=== PATIENT | male | born 1960 | race Caucasian/White ===

== ENCOUNTER 2018-10-22 11:05 | Inpatient (IN) ==
--- NOTE | 2018-10-10 15:51 | PAT Medication Instructions ---
Medication Instructions Date of Service October 10, 2018 Home Medications amlodipine 2.5 mg PO QPM aspirin [Aspirin Low Dose] 81 mg PO QPM doxazosin 8 mg PO QPM gemfibrozil 600 mg PO BIDM multivitamin 1 tab PO QPM omeprazole 20 mg PO DAILY PRN oxycodone-acetaminophen 1 tab PO QID psyllium husk [Daily Fiber] 0.52 g PO QAM ASK your prescriber and surgeon aspirin [Aspirin Low Dose] 81 mg PO QPM STOP taking 48 hours before surgery gemfibrozil 600 mg PO BIDM DO NOT take the morning of surgery psyllium husk [Daily Fiber] 0.52 g PO QAM Take morning of surgery With a small sip of water, OTHERWISE NOTHING TO EAT OR DRINK AFTER MIDNIGHT: omeprazole 20 mg PO DAILY PRN oxycodone-acetaminophen 1 tab PO QID (okay to take up to 4 hours prior to surgery if needed) Take evening before surgery amlodipine 2.5 mg PO QPM doxazosin 8 mg PO QPM multivitamin 1 tab PO QPM oxycodone-acetaminophen 1 tab PO QID Other Notes If you have any questions please call us at [phone] or [phone] or [phone] or [phone]
--- NOTE | 2018-10-14 14:22 | Anesthesiology Consultation ---
Date of Service October 14, 2018 Assessment & Plan (1) Encounter for pre-operative examination: Chart Review Chart Review: Acceptable Risk for Surgery and Patient seen in Pre Admission Testing Teaching & Discussion Pre-Anesthesia Teaching/Discussion Notes: Instructed NPO after midnight before surgery,except medications with 15 cc of water. Medication instructions provided according to the PAT guidelines. History Surgery Operation Date: 10/22/18 14:25 Proposed Procedures p L2-L3 Transforaminal Lumbar Interbody Fusion, Spinal Cord Monitoring - Jean Massey DO Height/Weight Height: 5 ft 11 in Weight: 110.8 kg Allergies Allergy/AdvReac Type Severity Reaction Status Date / Time No Known Allergies Allergy Verified 10/08/18 11:38 Medications Home Medications Medication Instructions Recorded Confirmed Last Taken amlodipine 2.5 mg PO QPM 10/08/18 10/08/18 Unknown aspirin [Aspirin Low Dose] 81 mg PO QPM 10/08/18 10/08/18 Unknown doxazosin 8 mg PO QPM 10/08/18 10/08/18 Unknown gemfibrozil 600 mg PO BIDM 10/08/18 10/08/18 Unknown multivitamin 1 tab PO QPM 10/08/18 10/08/18 Unknown omeprazole 20 mg PO DAILY PRN 10/08/18 10/08/18 Unknown oxycodone-acetaminophen 1 tab PO QID 10/08/18 10/08/18 Unknown psyllium husk [Daily Fiber] 0.52 g PO QAM 10/08/18 10/08/18 Unknown Past Medical History Medical History GERD (gastroesophageal reflux disease) controlled History of kidney stones Hyperlipidemia Hypertension Obesity Exercise / Class Metabolic Activity II 4-5 Yardwork/Stairs/Walk up hill Past Surgical History Surgical History History of surgery JAW R/T ACCIDENT History of surgery on extremity LEFT LEG R/T ACCIDENT Hx of cholecystectomy Hx of colonoscopy Past Anesthesia History No Hx of Anesthesia Complications and No Family Hx of Anesthesia Complications History of PONV No Hx of PONV and No Hx of Motion Sickness Social History Smoking Status: Former smoker Do You Dip or Chew Tobacco: No Smoking End Date: Quit 31 years ago (occasional cigars previously) Hx Alcohol Use: Yes Alcohol type: beer, wine and hard liquor alcohol intake frequency: a few times a month Hx Substance Use: No Review of Systems LBP with RLE buttocks/LE neuropathy. Patient denies chest pain, shortness of breath, dyspnea on exertion, cough, wheezing, palpitations. Physical Exam Vital Signs VITALS BP 128/83 P 71 TEMP 98.0 SP02 95%RA RESP 16 PHYSICAL Mildly decreased cervical extension Full TMJ range of motion. TMD 3 finger breaths Mallampati Score 2 Dentition: intact, crowns on molars Lungs: clear throughout to auscultation Cardiac: regular rate and rhythm, no murmurs noted Spine: normal Carotid arteries: negative bruit Extremities: no edema Trimmed dove Testing Laboratory Results 10/14/18 15:00 10/14/18 15:00 PT 10.3 Seconds (9.0-12.0) 10/14/18 15:00 INR 1.0 (0.9-1.1) 10/14/18 15:00 APTT 27.0 Seconds (21.0-31.0) 10/14/18 15:00 Urine Color Yellow 10/14/18 15:00 Urine Appearance Clear (Clear) 10/14/18 15:00 Urine pH 6.0 (4.5-7.5) 10/14/18 15:00 Ur Specific [place]on 1.024 (1.000-1.030) 10/14/18 15:00 Urine Protein Negative (Negative) 10/14/18 15:00 Urine Glucose (UA) Negative (Negative) 10/14/18 15:00 Urine Ketones Negative (Negative) 10/14/18 15:00 Urine Nitrite Negative (Negative) 10/14/18 15:00 Ur Leukocyte Esterase Negative (Negative) 10/14/18 15:00 Blood Type A Positive 10/14/18 15:00 Antibody Screen NEGATIVE 10/14/18 15:00 Electrocardiogram Date: 10/14/18 NSR at 66bpm. NS STA. Chest X-Ray Date: 10/14/18 No acute process within the chest. Partially calcified 12 mm nodule within the right lung base. This favors a calcified granuloma. However, follow-up chest CT is recommended for confirmation (report sent to PCP/surgeon for their reference). PCP/surgeon are aware of CXR findings and will be obtaining chest CT to further evaluate but will not be done until after surgery- reviewed by Dr. Haas who feels okay to proceed without CT prior to surgery*
--- NOTE | 2018-10-14 15:33 | XRay Report ---
XR chest Pre-admission PA/Lat HISTORY: Preop. COMPARISON: None. FINDINGS: No pneumothorax. No pleural effusions. No focal lung consolidations to suggest pneumonia. N o evidence for pulmonary edema. The heart is normal in size. Partially calcified 12 mm nodule right l heaven base. IMPRESSION: 1. No acute process within the chest. 2. Partially calcified 12 mm nodule within the right lung base. This favors a calcified granuloma. Ho wever, follow-up chest CT is recommended for confirmation. 3. These findings were called/faxed to the referring physician's office following dictation. Electronically signed by: Krystian Pompa M.D. 10/14/2018 3:32 PM
[2018-10-14 16:38] LABS: Basophils # (auto) 0.02 K/uL (0-0.2); Basophils % (auto) 0.3 %; Eosinophils # (auto) 0.08 K/uL (0-0.5); Eosinophils % (auto) 1.2 %; Hematocrit (blood only) 39.1 % (42-52); Hemoglobin 13.5 g/dL (14.0-18.0); Immature Granulocytes # (auto) 0.01 K/uL (0.00-0.02); Immature Granulocytes % (auto) 0.1 %; Lymphocytes # (auto) 1.77 K/uL (1.2-3.4); Mean Corpuscular Hgb Conc 34.5 g/dL (32-36); Mean Corpuscular Volume 85.4 fL (80-100); Mean Platelet Volume 10.5 fL (7.4-10.4); Monocytes # (auto) 0.52 K/uL (0.11-0.59); Monocytes % (auto) 7.6 %; Neutrophils % (auto) 64.8 %; Platelet Count 276 K/uL (130-400); RDW Coefficient of Variation 13.6 % (11.5-14.5); RDW Standard Deviation 42.3 fL (36.4-46.3); Red Blood Count 4.58 M/uL (4.7-6.1)
[2018-10-14 16:40] LABS: Appearance Urine Clear (Clear); Bilirubin Urine Negative (Negative); Blood Urine Negative (Negative); Color Urine Yellow; Glucose Urine UA Negative (Negative); Ketones Urine Negative (Negative); Leukocyte Esterase Urine Negative (Negative); Nitrite Urine Negative (Negative); Protein Urine Negative (Negative); Specific Gravity Urine 1.024 (1.000-1.030); Urobilinogen Urine Negative (Negative)
[2018-10-14 16:46] LABS: BUN Creatinine Ratio 22.1 (10-20); Calcium 8.6 mg/dl (8.5-10.1); Creatinine Clr Calc Pharmacy 105.5 ml/min; Est GFR (African American) 98.3; Est GFR (Non-African American) 84.8; Potassium 4.2 mmol/L (3.5-5.1)
[2018-10-14 16:49] LABS: Prothrombin Time 10.3 Seconds (9.0-12.0)
[~2018-10-22 11:05] MED LIST: ACETAMINOPHEN 500 MG TAB PO SCH; CEFAZOLIN 2000MG 2,000 MG/15 ML SYR IV SCH; CeleBREX 200 MG CAP PO SCH; GABAPENTIN 600 MG DOSE PO SCH; LR 15ML/HR IV SCH
[2018-10-22] MEDS ORDERED: MIDAZOLAM HCL 1 MG/ML 2ML VIAL ONE (12:57)
[2018-10-22] MEDS ORDERED: fentaNYL citrate 100 MCG/2 ML VIAL ONE ×3 (12:57→14:06)
--- NOTE | 2018-10-22 13:08 | History & Physical Bridge Note ---
Date of Service October 22, 2018 History & Physical Bridge Note I have examined the patient, reviewed the History & Physical and in the interval since the performance of the History & Physical I have noted the following changes of clinical significance: no changes noted
--- NOTE | 2018-10-22 13:09 | History & Physical Report ---
Date of Service October 22, 2018 Assessment & Plan (1) Lumbar disc herniation with radiculopathy: Transforaminal lumbar interbody fusion L2-3 Present on Admission?: Yes History of Present Illness Chief Complaint: Back and leg pain Primary Care Provider: Brady Stoner With chronic persistent back and leg pain. After failing extensive course of nonoperative care is here for surgical intervention. Allergies Allergy/AdvReac Type Severity Reaction Status Date / Time bee venom protein (honey bee) Allergy Severe Swelling Verified 10/22/18 11:37 of Lip/Tongue/Throat shrimp Allergy Severe Swelling Verified 10/22/18 11:37 of Lip/Tongue/Throat bay leaves Allergy Severe Swelling Uncoded 10/22/18 11:37 of Lip/Tongue/Throat Home Medications Home Medications Medication Instructions Recorded Confirmed Type amlodipine 2.5 mg PO QPM 10/08/18 10/22/18 History aspirin [Aspirin Low Dose] 81 mg PO QPM 10/08/18 10/22/18 History doxazosin 8 mg PO QPM 10/08/18 10/22/18 History gemfibrozil 600 mg PO BIDM 10/08/18 10/22/18 History multivitamin 1 tab PO QPM 10/08/18 10/22/18 History omeprazole 20 mg PO DAILY PRN 10/08/18 10/22/18 History oxycodone-acetaminophen 1 tab PO QID PRN 10/08/18 10/22/18 History psyllium husk [Daily Fiber] 0.52 g PO QAM 10/08/18 10/22/18 History Past Med/Surg History Medical History GERD (gastroesophageal reflux disease) controlled History of kidney stones Hyperlipidemia Hypertension Obesity Surgical History History of surgery JAW R/T ACCIDENT History of surgery on extremity LEFT LEG R/T ACCIDENT Hx of cholecystectomy Hx of colonoscopy Social History Preferred Language: Welsh Communication Ability: Effective Beliefs That Will Affect Care: None Current Living Situation: Spouse Feels Safe at Home: Yes Smoking Status: Former smoker Tobacco Type: smokeless tobacco ; Do You Dip or Chew Tobacco: No ; Smoking End Date: Quit 31 years ago (occasional cigars previously) ; Second Hand Exposure: Yes (OCCASSIONALLY) ; Hx Alcohol Use: Yes Alcohol type: beer, wine and hard liquor Hx Substance Use: No Physical Exam Physical Exam: Patient is alert and oriented neurologically intact. Results & Data Vital Signs (Past 12 Hours) Vital Signs Temp Pulse Resp BP Pulse Ox 10/22/18 11:33 36.8 C 80 18 144/85 H 96
[2018-10-22] MEDS ORDERED: ATROPINE SULFATE 0.1 MG/ML 10ML SYR IV PRN (13:16)
[2018-10-22] MEDS ORDERED: HYDROmorphone INJ 2 MG/ML SYR/VIAL IV PRN (13:16)
[2018-10-22] MEDS ORDERED: ONDANSETRON INJ 2 MG/ML 2 ML VIAL IV PRN ×2 (13:16→17:02)
[2018-10-22] MEDS ORDERED: ePHEDrine sulfate 50 MG/ML AMP IV PRN (13:16)
[2018-10-22] MEDS ORDERED: HYDROmorphone INJ 2 MG/ML SYR/VIAL ONE (13:18)
[2018-10-22] MEDS ORDERED: BUPIVACAINE/EPINEPHRINE 0.5% MPF 1:200,000 30 ML VIAL ONE (13:20)
[2018-10-22] MEDS ORDERED: BACITRACIN INJ 50,000 UNIT VIAL ONE (13:20)
[2018-10-22] MEDS ORDERED: NEOSTIGMINE METHYLSULFATE 1 MG/ML 10ML VIAL ONE (14:11)
[2018-10-22] MEDS ORDERED: ROCURONIUM BROMIDE 10 MG/ML 5 ML VIAL ONE (14:11)
[2018-10-22] MEDS ORDERED: DEXAMETHASONE SOD INJ 4 MG/ML VIAL ONE (14:11)
[2018-10-22] MEDS ORDERED: LIDOCAINE HCL 2% 2 ML VIAL/AMP(20MG/ML) INFIL ONE (14:11)
[2018-10-22] MEDS ORDERED: GLYCOPYRROLATE 0.2 MG/ML VIAL ONE (14:11)
[2018-10-22] MEDS ORDERED: ONDANSETRON INJ 2 MG/ML 2 ML VIAL ONE ×2 (14:11→14:50)
[2018-10-22] MEDS ORDERED: PROPOFOL IV EMULSION 10 MG/ML 20 ML VIAL IV ONE (14:11)
[2018-10-22] MEDS ORDERED: ePHEDrine sulfate 50 MG/ML SYR ONE (14:12)
[2018-10-22] MEDS ORDERED: FLOSEAL HEMOSTATIC MATRIX 10ML TOP ONE (14:23)
--- NOTE | 2018-10-22 15:19 | Operative Report ---
Post Operative Report Pre & Post Diagnosis Operation Date: 10/22/18 14:25 Pre-Op Diagnosis: Lumbar disc herniation with radiculopathy Post-Op Diagnosis: Lumbar disc herniation with radiculopathy Procedure Operation Date: 10/22/18 14:25 Actual Procedures #1 lumbar decompression with medial facetectomy foraminotomies L2-3. #2 posterior spinal fusion L2-3. #3 placement posterior instrumentation L2-3. #4 interbody fusion L2-3. #5 placement of peek cage 13 x 26 mm L2-3. #6 placement of local autograft in the posterior lateral gutters. #7 placement infuse collagen sponge, master graft in the posterior lateral gutters. Ostial amp and interbody space. Surgeon Jean Massey, Physician Relations Specialist Diana Simpson Estimated Blood Loss 200 Findings See Below The patient is 5 foot 11 inches tall weighing over 110 kg with a BMI in excess of 33. The patient's significant body habitus did create marked technical difficulty adding at least 35% increase in operative time. Specimens None Indications This is a 58-year-old male that presents with the above-mentioned diagnosis after failing extensive course of nonoperative care like to undergo the above- mentioned procedure. Description of Procedure Patient was met with identified and informed consent obtained. Patient was then taken to the operative suite underwent ablation placed in a prone position Rk table on top of the Jarret frame. All bony prominences well-padded eyes inspected to ensure no external pressure placed upon the peer at this point the lumbar spine was prepped and draped in the normal sterile fashion. Sharp dissection with the assistance of Bovie cautery was performed down to and exposing the lamina and transverse processes of L2 and L3. From a caudal cephalad fashion complete laminectomy of L2 was performed including medial facetectomy foraminotomy on the right. Identified several loose fragments of disc material out into the foramen. They were removed in their entirety. Pedicle screw was then placed in L2-L3 bilaterally with assistance of fluoroscopy the process sudheer placed. Through a transforaminal approach on the right complete discectomy was performed endplates curetted to subcortical bleeding bone and a 13 x 26 mm peek cage filled with ostium bone graft tapped in position. The rods were then compressed locked into final position bilaterally. The transverse processes of L2 and L3 burred to subcortical bleeding bone. Infuse collagen sponge mass graft and local autograft placed in the posterior lateral gutters. 15 round FRANCIA drain inserted. The incision was then closed with 1 Vicryl fascia 2-0 Vicryl subcutaneously and 4 Monocryl for final skin closure. Steri-Strips dressings placed. Patient will continue PACU in stable condition. Please note Diana Simpson present at the entire procedure involved the patient positioning complex portions of the surgery and final skin closure. Lastly spinal cord monitoring was utilized that procedure no changes noted. I attest to the content of the Intraoperative Record and any orders documented therein. Any exceptions are noted below.
--- NOTE | 2018-10-22 15:25 | Fluoroscopy Report ---
FL lumbar spine 2-3V CLINICAL HISTORY: L2-L3 LUMBAR INTERBODY FUSION COMPARISON STUDY: None FLUOROSCOPY TIME: Imaging seconds. NUMBER OF FLUOROSCOPIC IMAGES: 2 FINDINGS: 2 intraoperative fluoroscopic spot images reveal postsurgical changes of an L2-3 discectomy and interbody fusion with posterior pedicle screw fixation. IMPRESSION: Postsurgical changes of an L2-3 discectomy and fusion. Electronically signed by: Ankit Mitchell M.D. 10/22/2018 3:24 PM
[2018-10-22] MEDS: fentaNYL citrate 100 MCG/2 ML VIAL IV PRN ×2 (15:59→16:04)
--- NOTE | 2018-10-22 16:09 | Anesthesiology Progress Note ---
Date of Service October 22, 2018 Anesthesia Post Procedure Vital Signs Vital Signs: Temp Pulse Pulse Resp BP Pulse Ox 10/22/18 15:39 36.0 C L 99 H 16 139/81 97 10/22/18 11:33 36.8 C 80 18 144/85 H 96 Pain Intensity Back: Pain Intensity: 3 Transfer of Care Handoff Completed per policy Notes Mental Status: alert / awake / arousable and participated in evaluation Patient Amnestic to Procedure: Yes Nausea / Vomiting: adequately controlled Pain: adequately controlled Airway Patency, RR, SpO2: stable & adequate BP & HR: stable & adequate Hydration State: stable & adequate Anesthetic Complications: no major complications apparent and Pt Satisfied with anesthetic care
[2018-10-22] MEDS ORDERED: DO NOT ADMINISTER FLU VACCINE PRN (17:02)
[2018-10-22] MEDS ORDERED: ALUMINUM/MAGNESIUM SUSP 30 ML UDC PO PRN (17:02)
[2018-10-22] MEDS ORDERED: PROMETHAZINE HCL 12.5 MG in SODIUM CHLORIDE 0.9% 50 ML IV PRN (17:02)
[2018-10-22] MEDS ORDERED: BISACODYL 10 MG SUPP PR PRN (17:02)
[2018-10-22] MEDS ORDERED: ACETAMINOPHEN 1,000 MG/100 ML VIAL IV PRN (17:02)
[2018-10-22] MEDS ORDERED: SOD PHOSPHATE/SOD BIPHOSPHATE ENEMA 132 ML BTL PR PRN (17:02)
[2018-10-22] MEDS ORDERED: ONDANSETRON 4 MG TAB PO PRN (17:02)
[2018-10-22] MEDS ORDERED: LORazepam 0.5 MG TAB PO PRN (17:02)
[2018-10-22] MEDS ORDERED: LORazepam 0.5 MG/1 ML VIAL IV PRN (17:02)
[2018-10-22] MEDS ORDERED: DO NOT ADMINISTER PNEUMOCOCCAL VACCINE PRN (17:02)
[2018-10-22] MEDS ORDERED: METOCLOPRAMIDE HCL INJ 5 MG/ML 2 ML VIAL IV PRN (17:02)
[2018-10-22] MEDS ORDERED: MAGNESIUM HYDROXIDE SUSP 30 ML UDC PO PRN (17:02)
[2018-10-22] MEDS ORDERED: FAMOTIDINE 20 MG TAB PO PRN (17:02)
[2018-10-22] MEDS ORDERED: NALOXONE HCL 0.4 MG/1 ML VIAL/CARP IV PRN (17:02)
[2018-10-22] MEDS ORDERED: ACETAMINOPHEN 500 MG TAB PO PRN (17:02)
[2018-10-22] MEDS: KETOROLAC 30 MG/ML VIAL IV SCH ×2 (18:36→23:47)
[2018-10-22] MEDS: OXYCODONE HCL IR 5 MG TAB (IMMEDIATE RELEASE) PO PRN (18:46)
[2018-10-22] MEDS: ASPIRIN 81 MG ECTAB PO SCH (20:56)
[2018-10-22] MEDS: DOXAZosin MESYLATE 4 MG TAB PO SCH (20:56)
[2018-10-22] MEDS: AMLODIPINE BESYLATE 5 MG TAB PO SCH (20:56)
[2018-10-22] MEDS: MULTIVITAMIN TAB PO SCH (20:56)
[2018-10-22] MEDS: HYDROmorphone INJ 0.5 MG/0.5 ML SYR IV PRN (20:57)
[2018-10-22] MEDS: DOCUSATE SODIUM/SENNA 50/8.6MG TAB PO SCH (20:57)
[2018-10-22] MEDS: CEFAZOLIN 2000MG 2,000 MG/15 ML SYR IV SCH (21:04)
[2018-10-22] MEDS: LACTATED RINGER'S 1,000 ML IV SCH (21:15)
[2018-10-23] MEDS ORDERED: COUGH DROP (SUGAR FREE) LOZ 24 LOZ/1 BOX BUCCAL PRN (04:05)
[2018-10-23] MEDS ORDERED: COUGH DROP (SUGAR FREE) LOZ 24 LOZ/1 BOX BUCCAL ONE (04:37)
[2018-10-23] MEDS ORDERED: POLYETHYLENE (MIRALAX) 17 GM PACK PO SCH (06:00)
[2018-10-23] MEDS: KETOROLAC 30 MG/ML VIAL IV SCH ×2 (06:02→11:36)
[2018-10-23] MEDS: GEMFIBROZIL 600 MG TAB PO SCH ×2 (06:04→11:36)
[2018-10-23] MEDS: CEFAZOLIN 2000MG 2,000 MG/15 ML SYR IV SCH (06:04)
[2018-10-23 06:11] LABS: Basophils # (auto) 0.01 K/uL (0-0.2); Basophils % (auto) 0.1 %; Hematocrit (blood only) 35.8 % (42-52); Immature Granulocytes # (auto) 0.03 K/uL (0.00-0.02); Immature Granulocytes % (auto) 0.2 %; Lymphocytes # (auto) 1.44 K/uL (1.2-3.4); Lymphocytes % (auto) 10.4 %; Mean Corpuscular Hgb Conc 33.5 g/dL (32-36); Mean Corpuscular Volume 84.4 fL (80-100); Mean Platelet Volume 10.3 fL (7.4-10.4); Monocytes # (auto) 0.81 K/uL (0.11-0.59); Monocytes % (auto) 5.9 %; Neutrophils # (auto) 11.49 K/uL (1.4-6.5); Neutrophils % (auto) 83.4 %; Platelet Count 215 K/uL (130-400); RDW Coefficient of Variation 13.5 % (11.5-14.5); RDW Standard Deviation 40.8 fL (36.4-46.3); Red Blood Count 4.24 M/uL (4.7-6.1); White Blood Count 13.78 K/uL (4.8-10.8)
[2018-10-23] MEDS: LACTATED RINGER'S 1,000 ML IV SCH (06:37)
[2018-10-23 06:43] LABS: Calcium 8.8 mg/dl (8.5-10.1); Creatinine Clr Calc Pharmacy 103.2 ml/min; Est GFR (African American) 95.9; Est GFR (Non-African American) 82.8
--- NOTE | 2018-10-23 08:19 | Anesthesiology Progress Note ---
Date of Service October 23, 2018 Anesthesia Post Procedure Vital Signs Vital Signs: Temp Pulse Pulse Pulse Pulse Resp BP 10/23/18 08:08 36.4 C L 95 H 16 10/23/18 03:21 36.6 C 94 H 16 10/22/18 23:35 36.6 C 108 H 16 10/22/18 20:11 36.7 C 110 H 18 10/22/18 18:50 104 H 18 10/22/18 17:54 36.5 C 101 H 18 10/22/18 17:23 36.4 C L 93 H 18 10/22/18 16:50 36.6 C 30 L 16 10/22/18 16:36 83 14 10/22/18 16:35 95 H 15 133/86 10/22/18 16:31 87 14 10/22/18 16:30 86 13 132/81 10/22/18 16:26 85 14 10/22/18 16:25 98 H 22 132/88 10/22/18 16:22 36.2 C L 10/22/18 16:21 90 14 10/22/18 16:20 93 H 12 140/83 10/22/18 16:16 92 H 14 10/22/18 16:15 98 H 13 150/85 H 10/22/18 16:11 94 H 12 10/22/18 16:10 91 H 12 134/82 10/22/18 16:06 90 11 L 10/22/18 16:05 91 H 10 L 139/79 10/22/18 16:01 94 H 15 10/22/18 16:00 93 H 14 122/86 10/22/18 15:56 92 H 12 10/22/18 15:55 92 H 13 136/76 10/22/18 15:51 97 H 13 10/22/18 15:50 98 H 16 116/70 10/22/18 15:46 86 14 10/22/18 15:45 86 15 135/81 10/22/18 15:41 95 H 15 10/22/18 15:40 88 15 118/86 10/22/18 15:39 36.0 C L 92 H 99 H 15 139/81 10/22/18 11:33 36.8 C 80 18 BP BP Pulse Ox 10/23/18 08:08 123/79 93 10/23/18 03:21 127/73 95 10/22/18 23:35 107/70 95 10/22/18 20:11 143/86 H 91 10/22/18 18:50 142/90 H 95 10/22/18 17:54 141/93 H 90 10/22/18 17:23 134/87 94 10/22/18 16:50 147/85 H 94 10/22/18 16:36 92 10/22/18 16:35 94 10/22/18 16:31 94 10/22/18 16:30 94 10/22/18 16:26 92 10/22/18 16:25 93 10/22/18 16:22 96 10/22/18 16:21 96 10/22/18 16:20 97 10/22/18 16:16 96 10/22/18 16:15 93 10/22/18 16:11 92 10/22/18 16:10 93 10/22/18 16:06 94 10/22/18 16:05 95 10/22/18 16:01 95 10/22/18 16:00 95 10/22/18 15:56 95 10/22/18 15:55 95 10/22/18 15:51 97 10/22/18 15:50 97 10/22/18 15:46 98 10/22/18 15:45 97 10/22/18 15:41 93 10/22/18 15:40 94 10/22/18 15:39 139/81 93 10/22/18 11:33 144/85 H 96 Pain Intensity Back: Pain Intensity: 3 Notes Mental Status: alert / awake / arousable and participated in evaluation Nausea / Vomiting: adequately controlled Pain: adequately controlled Airway Patency, RR, SpO2: stable & adequate BP & HR: stable & adequate Hydration State: stable & adequate
[2018-10-23] MEDS ORDERED: PANTOprazole 40 MG TAB PO PRN (09:00)
--- NOTE | 2018-10-23 10:35 | Orthopedic Progress Note ---
Date of Service October 23, 2018 Assessment & Plan (1) Lumbar disc herniation with radiculopathy: Patient will continue physical therapy today monitor his FRANCIA output anticipate discharge home the next few days. Present on Admission?: Yes Subjective Patient's back pain is controlled leg symptoms markedly improved. Still some notes of numbness to the right thigh. Physical Exam Physical Exam: Patient is in the chair at the bedside. Is good strength testing. Appears comfortable. Results & Data Vital Signs (Past 12 Hours) Vital Signs Temp Pulse Pulse Resp BP BP Pulse Ox 10/23/18 08:08 36.4 C L 95 H 16 123/79 93 10/23/18 03:21 36.6 C 94 H 16 127/73 95 10/22/18 23:35 36.6 C 108 H 16 107/70 95
[2018-10-23] MEDS: OXYCODONE HCL IR 5 MG TAB (IMMEDIATE RELEASE) PO PRN ×3 (12:33→20:55)
[2018-10-23] MEDS: AMLODIPINE BESYLATE 5 MG TAB PO SCH (20:50)
[2018-10-23] MEDS: MULTIVITAMIN TAB PO SCH (20:51)
[2018-10-23] MEDS: DOXAZosin MESYLATE 4 MG TAB PO SCH (20:51)
[2018-10-23] MEDS: ASPIRIN 81 MG ECTAB PO SCH (20:52)
[2018-10-23] MEDS: DOCUSATE SODIUM/SENNA 50/8.6MG TAB PO SCH (20:55)
[2018-10-23] MEDS: HYDROmorphone INJ 0.5 MG/0.5 ML SYR IV PRN (22:32)
[2018-10-24] MEDS: OXYCODONE HCL IR 5 MG TAB (IMMEDIATE RELEASE) PO PRN ×5 (04:53→23:54)
[2018-10-24] MEDS: GEMFIBROZIL 600 MG TAB PO SCH ×2 (04:54→11:02)
[2018-10-24] MEDS ORDERED: HYDROmorphone INJ 1 MG/ML SYRINGE IV ONE (07:30)
[2018-10-24] MEDS: HYDROmorphone INJ 0.5 MG/0.5 ML SYR IV PRN (14:07)
--- NOTE | 2018-10-24 15:27 | Orthopedic Progress Note ---
Date of Service October 24, 2018 Assessment & Plan (1) Lumbar disc herniation with radiculopathy: This time we will continue physical therapy monitor his FRANCIA output anticipate discharge home tomorrow. Present on Admission?: Yes Subjective Patient struggling with a bit more back pain today. Leg symptoms are still markedly improved. He is been ambulating well. Physical Exam Physical Exam: Patient is in the chair at the bedside. Is good strength testing. Results & Data Vital Signs (Past 12 Hours) Vital Signs Temp Pulse Pulse Resp BP BP Pulse Ox 10/24/18 15:21 37.5 C 99 H 16 135/79 10/24/18 07:48 36.8 C 83 18 114/73 90 10/24/18 06:59 36.8 C 18 L 88 18 112/68 93 10/24/18 06:42 37.0 C 84 16 137/78 94
[2018-10-24] MEDS: TRAMADOL HCL 50 MG TABLET PO PRN ×2 (17:09→21:23)
[2018-10-24] MEDS: DOXAZosin MESYLATE 4 MG TAB PO SCH (21:17)
[2018-10-24] MEDS: ASPIRIN 81 MG ECTAB PO SCH (21:17)
[2018-10-24] MEDS: MULTIVITAMIN TAB PO SCH (21:18)
[2018-10-24] MEDS: AMLODIPINE BESYLATE 5 MG TAB PO SCH (21:18)
[2018-10-24] MEDS: DOCUSATE SODIUM/SENNA 50/8.6MG TAB PO SCH (21:22)
[2018-10-25] MEDS: OXYCODONE HCL IR 5 MG TAB (IMMEDIATE RELEASE) PO PRN ×2 (03:56→08:46)
[2018-10-25] MEDS: GEMFIBROZIL 600 MG TAB PO SCH ×2 (06:15→11:49)
--- NOTE | 2018-10-25 08:15 | Discharge Summary ---
Date of Service October 25, 2018 Admission HPI Per Admitting Provider With chronic persistent back and leg pain. After failing extensive course of nonoperative care is here for surgical intervention. Principal Diagnosis Lumbar spinal stenosis with radiculopathy Discharge Data Allergies Allergy/AdvReac Type Severity Reaction Status Date / Time bee venom protein (honey bee) Allergy Severe Swelling Verified 10/22/18 11:37 of Lip/Tongue/Throat shrimp Allergy Severe Swelling Verified 10/22/18 11:37 of Lip/Tongue/Throat bay leaves Allergy Severe Swelling Uncoded 10/22/18 11:37 of Lip/Tongue/Throat Consultations 10/22/18 17:02 Consult Case Management - Discharge Planning Routine Procedures Performed Operation Date: 10/22/18 14:25 Actual Procedures p L2-L3 Transforaminal Lumbar Interbody Fusion, Spinal Cord Monitoring(Not Applicable) - Jean Massey DO Ordered Studies 10/22/18 14:25 FL fluoroscopy <1hr Routine FL lumbar spine 2-3V Routine Hospital Course (1) Lumbar disc herniation with radiculopathy: Patient underwent lumbar decompression fusion tolerated as well as taken to orthopedic for postoperative. Postop day 1 is up and ambulating leg symptoms markedly improved. Progressed to postop day #2 postop day #3 pain was well controlled FRANCIA drain decreased appropriately subsequently discharged home. Discharge orders and instructions found in the chart for further review. Total Time Total Time Spent Total Time Spent (In Minutes): 20 minutes Discharge Plan Discharge Items Patient Disposition: Home - Self-Care Reason For Visit: LUMBAR OTHER INTERVERTEBRAL DISC DISPLACEMENT Discharge Diagnosis: Lumbar disc herniation with radiculopathy Activity: Per Instructions section Non-emergency contact: Primary Care Provider Call non-emergency contact if: you have any medication questions Follow-up/Referrals: Brady Stoner M.D. [Primary Care Provider] - Diet: Regular Addtl Attending Provider Instructions: ACTIVITY RECOMMENDATIONS: SELF CARE INSTRUCTIONS AFTER THORACIC/LUMBAR FUSIONS 1. You may walk to your tolerance. It is good exercise for your legs and back. Expect some back and intermittent leg aches and pains. 2. You may perform "counter-top" level activities (make a sandwich, partha with a project, etc.). 3. No bending or lifting of more than 10 pounds or back twisting of any nature (roll like a log when turning in bed). 4. You may ride in a car for 20-30 minutes at a time. No driving until after your first visit with your doctor. 5. Frequent changes of position and restricting sitting to 30 minutes at a time will help limit the amount of back spasms and stiffness you may experience. 6. You may discontinue the use of ambulatory aids (cane, crutches, etc.) once your strength and confidence allow. 7. You may civil engineering draftsperson the shower and let water strike your incision when you arrive home at least once daily. Do not take a tub bath, sit in a hot tub or go into a swimming pool until after your first recheck in the office. SPECIAL CARE INSTRUCTIONS: VERY IMPORTANT TO READ AND REVIEW A. Your surgical incision has been closed with a cosmetic suture under the skin that will dissolve in about 6 weeks. In 14 days, you can use a pair of clean scissors and cut the suture that is left outside of the skin at the ends of your incision. 1. The small skin tapes can be removed 7 days after surgery if they have not fallen off by that point. 2. You may keep the wound open to air as much as possible to promote healing after post-op day number 5 unless told otherwise by your doctor. 3. If you think the wound looks like it is becoming infected (redness or worsening drainage) and/or you are experiencing fever, chill or worsening back pain and muscle spasms, contact the office so that we may evaluate you as soon as possible. B. Complications are uncommon, but please contact us if you have any signs or symptoms of: 1. wound infection (fever higher than 102.5 degrees F, redness, separation of wound, drainage, or increasing pain from the incision) 2. blood clots in legs (pain, swelling, redness and warmth in legs) 3. urinary tract infection (fever higher than 102.5 degrees F, burning upon urination or increased frequency of urination) 4. nerve problems (inability to walk on your toes or heels, numbness, loss of bowel or bladder control) 5. any other symptoms that concern you C. Please call the office at if you have any concerns or questions about your operation or recovery. D. No smoking! Smoking drastically decreases the chance of a solid fusion. E. Do not take any anti-inflammatory medications (Indocin, Advil, Motrin, Aspirin, Naprosyn, etc.) as these may inhibit the chance of a solid fusion. Tylenol is okay to take for pain. MANAGING PAIN AFTER SPINAL SURGERY 1. Narcotic medication is intended for short-term use and will be provided for surgical pain. Surgical pain usually lasts for a period of 4-6 weeks. Narcotic medication includes Percocet, Vicodin, Darvocet, Tylenol #3 or Lortab. 2. Longer-term pain is more appropriately treated with non-narcotic medication such as Tylenol ES. 3. Muscle spasm is not appropriately treated with narcotics. Muscle relaxers such as Soma, Flexeril or Skelaxin can be used along with Tylenol ES. 4. Remember that we all live with some "aches and pains". This is not unusual or uncommon after an injury or as we get older. a. Back pain is expected and may include muscle spasms for 4 to 6 weeks after surgery. The pain should gradually improve. If the pain worsens for no apparent reason, please contact the office. b. Intermittent leg pain may also be experienced and should not be concerned about unless it worsens for no apparent reason. If so, please contact the office. 5. We will provide appropriate medication within the normal guidelines of their prescribed use. We will also be very cautious and aware of potential abuse and extended duration of patients' medication needs. a. Pain medications are for your comfort and to assist with sleep and rest so that the tissue can heal. They are not provided in order to return to normal activity and should not be used through the day. To do so or worsening pain at night can result from ongoing tissue damage and development of tolerance to the prescribed medicine. 6. Please allow 2-3 days to process refills. Prescriptions will not be mailed but must be picked up at the office. FOLLOW UP VISIT: Keep your scheduled follow-up appointment. Any questions, please call the office at . Pending Studies at Discharge: No Stand-Alone Forms: [facility] and [place] Order Prescriptions: New tramadol 50 mg Tablet 50 mg PO Q4H PRN (Reason: Pain, Moderate) Qty: 30 RF: 0 oxycodone 5 mg Tablet 5 mg PO Q4H PRN (Reason: Pain, Severe) Qty: 30 RF: 0 Continued multivitamin Tablet 1 tab PO QPM RF: 0 amlodipine 2.5 mg Tablet 2.5 mg PO QPM RF: 0 aspirin [Aspirin Low Dose] 81 mg Tablet,Delayed Release (Dr/Ec) 81 mg PO QPM RF: 0 oxycodone-acetaminophen 5-325 mg Tablet 1 tab PO QID PRN (Reason: Pain) RF: 0 doxazosin 8 mg Tablet 8 mg PO QPM RF: 0 gemfibrozil 600 mg Tablet 600 mg PO BIDM RF: 0 psyllium husk [Daily Fiber] 0.52 gram Capsule 0.52 g PO QAM RF: 0 omeprazole 20 mg Tablet,Delayed Release (Dr/Ec) 20 mg PO DAILY PRN (Reason: GERD) RF: 0 Discharge Orders: Discharge Order (Routine); Ordered 10/25/18 Ordered By: Jean Massey Admission Data Admit Date/Time: 10/22/18 15:22 Attending Provider: Jean Massey Admit Provider: Jean Massey Primary Care Provider: Brady Stoner
[2018-10-25] MEDS: TRAMADOL HCL 50 MG TABLET PO PRN (11:49)
== END 2018-10-25 13:15 | disposition home or self-care (01) | DRG 455 ==
LOC: ASU 11:05 → EDSEX 14:05 → 3E 15:22